=== PATIENT | male | born 1950 | race Caucasian/White ===

== ENCOUNTER → 2017-05-13 | Outpatient (CLI) | payer MEDICARE | END | disposition home or self-care (01) | LOC: PCVCCLINIC 15:35 | PROVIDERS: ATTEND Internal Medicine Cardiovascular Disease | DX: I45.10 Unspecified right bundle-branch block (principal); I25.10 Atherosclerotic heart disease of native coronary artery without angina pectoris; I10 Essential (primary) hypertension; I48.0 Paroxysmal atrial fibrillation; E78.5 Hyperlipidemia, unspecified; E78.1 Pure hyperglyceridemia; E11.9 Type 2 diabetes mellitus without complications; Z79.4 Long term (current) use of insulin; Z79.84 Long term (current) use of oral hypoglycemic drugs; Z79.899 Other long term (current) drug therapy; Z88.1 Allergy status to other antibiotic agents | CPT/HCPCS: 80061; 93005; G0463 ==

== ENCOUNTER → 2017-08-27 | Outpatient (CLI) | payer MEDICARE ==
--- NOTE | 2017-08-27 17:41 | PCVCIMAG ---
APPROVED REPORT Exam: Stress Echocardiogram Indication: CAD s/p MN,Stent Patient Location: Echo lab Stress Nurse: Klaudia Coles RN Room #: 2 Ht: 5 ft 11 in HR: 78 bpm BP: 144/78 mmHg Rhythm: NSR Medical History Medical History: CAD s/p MN, stent, Diabetes, Hyperlipidemia Cardiac Risk Factors: DM, Hyperlipidemia Previous Cardiac Procedures: PCIMyocardial infarction Pretest Chest Pain Characteristics: No chest pain Exercise History: Physically active Procedure The patient underwent an Exercise Stress Test using the Jaziel Protocol. Blood pressure, heart rate, and EKG were monitored. An Echocardiogram was performed by surveillance technician in four stages in quad fashion. At peak stress, four selected images were obtained and placed side by side with resting images for comparison. Stress Test Details Stress Test: Exercise stress testing was performed using a Jaziel protocol. HR Resting HR: 78 bpmMax Heart Rate (APMHR): 154 bpm Max HR Achieved: 162 bpmTarget HR (85% APMHR): 130 bpm % of APMHR: 105 Recovery HR: 91 bpm HR response to stress: Normal HR response to stress BP Resting BP: 144/78 mmHg Max BP: 214/100 mmHg Recovery BP: 140/80 mmHg ECG Resting ECG: Sinus Rhythm Stress ECG: Sinus Rhythm ST Change: Non-ischemic, Upsloping ST depression Maximum ST Deviation: 1.6 mm Arrhythmia: Rare PVCs and PACs Recovery ECG: Sinus Rhythm Recovery ST Change: Non-ischemic Recovery ST Deviation: 0.6 mm Recovery Arrhythmia: None Clinical Reason for Termination: Maximal effort Stress Symptoms: none Exercise duration: 9 min 59 sec Exercise capacity: 13.3 METs Angina Score: None Stress ECG Conclusion The patient exercised according to the Jaziel protocol for 9:59 mins; achieving a work level of 13.3 METS. The resting heart rate of 84 bpm willis to a maximal heart rate of 162 bpm. This value represents 105% of the maximal, age-predicted heart rate. The resting blood pressure of 144/78mmHg, willis to a maximum of 214/100 mmHg. The exercise test was stopped due to fatigue. Bee Treadmill Score is 1.0 which is Moderate risk. Pre-Stress Echo The resting Echocardiogram showed normal left ventricular contractility with an estimated Ejection Fraction of about 55-60%. Normal wall motion in all segments on baseline images. Post-Stress Echo The stress Echocardiogram showed normal left ventricular contractility with an estimated Ejection Fraction of about 65-70%. Normal augmentation of wall motion in all segments on post stress images. Clinical No clinical or ECG evidence for ischemia. Conclusion Clinical Response: Non-ischemic Exercise Capacity: Superior Stress ECG Response: Non-ischemic Stress Echo Images: Non-ischemic No clinical, EKG or echocardiographic evidence for ischemia. No echocardiographic evidence for exercise induced ischemia. Normal stress echocardiogram with maximal exercise stress. <Conclusion> No clinical, EKG or echocardiographic evidence for ischemia. No echocardiographic evidence for exercise induced ischemia. Normal stress echocardiogram with maximal exercise stress.
== END | disposition home or self-care (01) ==
LOC: PCVCIMAG 14:57
PROVIDERS: ATTEND Internal Medicine Cardiovascular Disease
DX: I25.10 Atherosclerotic heart disease of native coronary artery without angina pectoris (principal); I25.2 Old myocardial infarction; E11.9 Type 2 diabetes mellitus without complications; E78.5 Hyperlipidemia, unspecified; Z95.828 Presence of other vascular implants and grafts
CPT/HCPCS: 93325; 93351

== ENCOUNTER → 2018-05-13 | Outpatient (CLI) | payer MEDICARE | END | disposition home or self-care (01) | LOC: PCVCCLINIC 14:02 | DX: I25.10 Atherosclerotic heart disease of native coronary artery without angina pectoris (principal); I48.0 Paroxysmal atrial fibrillation; E78.1 Pure hyperglyceridemia; E78.5 Hyperlipidemia, unspecified; E11.9 Type 2 diabetes mellitus without complications; Z79.4 Long term (current) use of insulin; Z88.8 Allergy status to other drugs, medicaments and biological substances; Z79.899 Other long term (current) drug therapy; Z79.84 Long term (current) use of oral hypoglycemic drugs | CPT/HCPCS: 80061; 93005; G0463 ==

== ENCOUNTER → 2018-08-14 | Outpatient (CLI) | payer MEDICARE ==
--- NOTE | 2018-08-14 14:11 | PCVCIMAG ---
APPROVED REPORT Study performed: 08/14/2018 11:28:03 Exam: Stress Echocardiogram Indication: CAD , Palpitations , Atrial Fibrillation ablation Patient Location: Echo lab Stress Nurse: Klaudia Coles RN Room #: 2 Status: routine Ht: 5 ft 11 in HR: 59 bpm BP: 140/82 mmHg Rhythm: NSR Medical History Medical History: s/p ablation,dm,cad, Cardiac Risk Factors: Hyperlipidemia, DM Pretest Chest Pain Characteristics: No chest pain Exercise History: Physically active Procedure The patient underwent an Exercise Stress Test using the Wild Protocol. Blood pressure, heart rate, and EKG were monitored. An Echocardiogram was performed by dentures lab technician in four stages in quad fashion. At peak stress, four selected images were obtained and placed side by side with resting images for comparison. Stress Test Details Stress Test: Exercise stress testing was performed using a Wild protocol. HR Resting HR: 63 bpmMax Heart Rate (APMHR): 153 bpm Max HR Achieved: 162 bpmTarget HR (85% APMHR): 130 bpm % of APMHR: 105 Recovery HR: 81 bpm HR response to stress: Normal HR response to stress BP Resting BP: 140/82 mmHg Max BP: 208/90 mmHg Recovery BP: 146/76 mmHg ECG Resting ECG: Sinus Rhythm Stress ECG: Sinus Bradycardia ST Change: Non-ischemic Arrhythmia: None Recovery ECG: Sinus Rhythm Recovery ST Change: Non-ischemic Recovery Arrhythmia: None Clinical Reason for Termination: Maximal effort Stress Symptoms: none Exercise duration: 9 min 33 sec Highest Stage Achieved: Stage 4: 4.2 mph at 16% grade. Exercise capacity: 11.8 METs Overall Exercise Capacity for Age: Good Scale: Active Angina Score: None No complications. Stress ECG Conclusion The patient exercised according to the WILD protocol for 9:33mins; achieving a work level of 11.8METS. The resting heart rate of 63bpm willis to a maximum heart rate of 162 bpm. This value represent 105 % of the maximal, age-predicted heart rate. The resting blood pressure of 140/82 mmHg, willis to a maximum blood pressure of 208/90mmHg. The exercise test was stopped due tofatigue. Pre-Stress Echo The resting Echocardiogram showed normal left ventricular contractility with an estimated Ejection Fraction of about 55-60%. Normal wall motion in all segments on baseline images. Post-Stress Echo The stress Echocardiogram showed normal left ventricular contractility with an estimated Ejection Fraction of about 65-70%. Normal augmentation of wall motion in all segments on post stress images. Clinical No clinical or ECG evidence for ischemia. Conclusion Clinical Response: Non-ischemic Exercise Capacity: Average Stress ECG Response: Non-ischemic Stress Echo Images: Non-ischemic No clinical, EKG or echocardiographic evidence for ischemia. No echocardiographic evidence for exercise induced ischemia. Normal stress echocardiogram with maximal exercise stress. <Conclusion> No clinical, EKG or echocardiographic evidence for ischemia. No echocardiographic evidence for exercise induced ischemia. Normal stress echocardiogram with maximal exercise stress.
== END | disposition home or self-care (01) ==
LOC: PCVCIMAG 13:18
PROVIDERS: ATTEND Internal Medicine Cardiovascular Disease
DX: I25.10 Atherosclerotic heart disease of native coronary artery without angina pectoris (principal); E11.9 Type 2 diabetes mellitus without complications; I48.0 Paroxysmal atrial fibrillation
CPT/HCPCS: 93325; 93351

== ENCOUNTER → 2019-08-28 | Outpatient (CLI) | payer MEDICARE ==
--- NOTE | 2019-09-03 16:52 | PCVCIMAG ---
APPROVED REPORT Study performed: 08/28/2019 13:35:29 Exam: Stress Echocardiogram Indication: CAD , Hyperlipidemia, Hypertension Patient Location: Echo lab Stress Nurse: Cara Navarro RN Status: routine Ht: 5 ft 11 in HR: 90 bpm BP: 110/60 mmHg Rhythm: NSR Medical History Medical History: Diabetes, Stent Procedure The patient underwent an Exercise Stress Test using the Jaziel Protocol. Blood pressure, heart rate, and EKG were monitored. An Echocardiogram was performed by photo equipment technician in four stages in quad fashion. At peak stress, four selected images were obtained and placed side by side with resting images for comparison. Stress Test Details Stress Test: Exercise stress testing was performed using a Jaziel protocol. HR Resting HR: 90 bpmMax Heart Rate (APMHR): 152 bpm Max HR Achieved: 150 bpmTarget HR (85% APMHR): 129 bpm % of APMHR: 98 Recovery HR: 92 bpm HR response to stress: Normal HR response to stress BP Resting BP: 110/60 mmHg Max BP: 168/60 mmHg Recovery BP: 128/78 mmHg BP response to stress: Normal blood pressure response to stress. ECG Resting ECG: Sinus Rhythm Stress ECG: Sinus Rhythm Recovery ECG: Sinus Rhythm Recovery Arrhythmia: VPC Clinical Reason for Termination: Maximal effort Exercise duration: 9 min sec Highest Stage Achieved: Stage 3: 3.4 mph at 14% grade. Exercise capacity: 10.10 METs Overall Exercise Capacity for Age: Normal Pre-Stress Echo The resting Echocardiogram showed normal left ventricular contractility with an estimated Ejection Fraction of about 55-60%. Normal wall motion in all segments on baseline images. Post-Stress Echo The stress Echocardiogram showed normal left ventricular contractility with an estimated Ejection Fraction of about 60-65%. Normal augmentation of wall motion in all segments on post stress images. Clinical No clinical or ECG evidence for ischemia. Conclusion Clinical Response: Non-ischemic Exercise Capacity: Average Stress ECG Response: Non-ischemic Stress Echo Images: Non-ischemic The left ventricle is normal in size and wall thickness in both the rest and stress images. Other Information Study Quality: Adequate <Conclusion> The left ventricle is normal in size and wall thickness in both the rest and stress images.
== END | disposition home or self-care (01) ==
LOC: PCVCIMAG 13:20
PROVIDERS: ATTEND Internal Medicine Cardiovascular Disease
DX: I25.10 Atherosclerotic heart disease of native coronary artery without angina pectoris (principal); E78.5 Hyperlipidemia, unspecified; I10 Essential (primary) hypertension
CPT/HCPCS: 93325; 93351